=== PATIENT | female | born 1960 | race African-American/Black ===

== ENCOUNTER 2017-02-19 14:17 | Emergency (ER) | payer MEDICARE ==
[~2017-02-19] VITALS: Ht 165.1 cm; Wt 60.0 kg
[2017-02-19] MEDS ORDERED: MORPHINE SULFATE 10 MG/ML CPJ IM ONE (14:45)
[2017-02-19 17:04] VITALS: BP 142/86
== END 2017-02-19 17:13 | disposition home or self-care (01) ==
LOC: ER 14:27
DX: S42.294A Other nondisplaced fracture of upper end of right humerus, initial encounter for closed fracture (principal); M85.811 Other specified disorders of bone density and structure, right shoulder; E11.9 Type 2 diabetes mellitus without complications; Z86.73 Personal history of transient ischemic attack (TIA), and cerebral infarction without residual deficits; W10.8XXA Fall (on) (from) other stairs and steps, initial encounter; Y92.018 Other place in single-family (private) house as the place of occurrence of the external cause
CPT/HCPCS: 73030; 96372; 99284; J2270; A4565

== ENCOUNTER 2019-01-11 12:42 | Emergency (ER) | payer MEDICARE, OTHER ==
[~2019-01-11] VITALS: Ht 162.6 cm; Wt 62.0 kg
[2019-01-11] MEDS ORDERED: HYDROCODONE/ACETAMINOPHEN 5/325MG TABLET PO ONE (13:15)
[2019-01-11] MEDS ORDERED: DEXTROSE 50% WATER 50ML SYRINGE IV ONE (15:00)
[2019-01-11] MEDS ORDERED: HYDROCODONE/ACETAMINOPHEN 5/325MG TABLET PO NR (15:00)
[2019-01-11 17:40] VITALS: BP 129/95
== END 2019-01-11 17:40 | disposition home or self-care (01) ==
LOC: ER 13:38
DX: S02.2XXA Fracture of nasal bones, initial encounter for closed fracture (principal); S52.292A Other fracture of shaft of left ulna, initial encounter for closed fracture; E11.9 Type 2 diabetes mellitus without complications; I10 Essential (primary) hypertension; V49.49XA Driver injured in collision with other motor vehicles in traffic accident, initial encounter; Y93.89 Activity, other specified; Y92.89 Other specified places as the place of occurrence of the external cause; Y99.8 Other external cause status; Z88.0 Allergy status to penicillin
CPT/HCPCS: 29125; 70486; 73030; 73060; 73080; 73090; 73110; 82962; 96374; 99284